=== PATIENT | male | born 1945 | race Caucasian/White ===

== ENCOUNTER → 2017-06-23 | Outpatient (CLI) | payer MEDICARE, BC ==
[~2017-06-23] MED LIST: FLOMAX 0.40.4 MG/CAP PO; NO HOME MEDICATIONS; OMEGA 31000 MG; PROPECIA1 MG PO; PROSTATE MED; SINGULAIR 110 MG/TAB PO
== END ==
LOC: COL.RAD 10:30
DX: M47.816 Spondylosis without myelopathy or radiculopathy, lumbar region (principal); M47.814 Spondylosis without myelopathy or radiculopathy, thoracic region; M41.86 Other forms of scoliosis, lumbar region; M48.07 Spinal stenosis, lumbosacral region; M53.9 Dorsopathy, unspecified

== ENCOUNTER 2017-07-29 13:15 | Outpatient (RCR) | payer MEDICARE, BC | END 2017-08-03 09:07 | LOC: WSPT 13:15 | DX: M41.86 Other forms of scoliosis, lumbar region (principal); G54.4 Lumbosacral root disorders, not elsewhere classified | CPT/HCPCS: G8978-GP; G8979-GP; G8980-GP ==

== ENCOUNTER 2019-09-28 14:30 | Outpatient (RCR) | payer MEDICARE, BC | END 2019-12-18 | disposition home or self-care (01) | LOC: WSST | DX: G31.84 Mild cognitive impairment of uncertain or unknown etiology (principal) ==

== ENCOUNTER 2020-07-17 10:15 | Outpatient (RCR) | payer MEDICARE, BC | END 2020-10-07 | disposition home or self-care (01) | LOC: WSST | DX: R41.3 Other amnesia (principal) ==

== ENCOUNTER 2024-04-25 09:58 | Outpatient (RCR) | payer MEDICARE, BC | END 2024-05-24 | disposition home or self-care (01) | LOC: WSST | DX: R41.89 Other symptoms and signs involving cognitive functions and awareness (principal); G30.1 Alzheimer's disease with late onset; F02.818 Dementia in other diseases classified elsewhere, unspecified severity, with other behavioral disturbance; R41.3 Other amnesia ==